=== PATIENT | female | born 1975 | race Caucasian/White ===

== ENCOUNTER 2016-04-24 14:05 | Emergency (ER) | payer MEDICAID ==
[~2016-04-24] VITALS: Ht 160 cm; Wt 55.0 kg
[~2016-04-24 14:05] MED LIST: CRUT1EAC7 MC; CYCL10TA45 PO; ESTR2TAB PO; HYDR-3702 PO; LISD30CA2 PO; ONDA4TAB8 PO; OXYC1TAB6 PO; PROM25SU10 PR; TRIA5PAS3 BU; TRM50T PO
[2016-04-24] MEDS ORDERED: SUVO10TA PO (14:21)
[2016-04-24] MEDS ORDERED: NALBUPHINE 10 MG/ML (NUBAIN) 1 ML AMP IM ONE (14:45)
[2016-04-24] MEDS: METOCLOPRAMIDE 10 MG/2 ML (REGLAN) VIAL IM ONE ×2 (14:48→14:51)
[2016-04-24] MEDS ORDERED: PROMETHAZINE 25 MG/ML (PHENERGAN) 1 ML VIAL IM ONE (15:00)
[2016-04-24] MEDS ORDERED: PRM12.5SU PR (15:06)
[2016-04-24] MEDS ORDERED: HYDR-3702 PO (15:06)
[2016-04-24 15:17] VITALS: BP 131/82
[2016-05-10] MEDS ORDERED: CYCL10TA45 PO (19:10)
[2016-05-10] MEDS ORDERED: OXAP600T2 PO (19:10)
== END 2016-04-24 15:18 | disposition home or self-care (01) ==
LOC: ED 14:06
DX: G43.909 Migraine, unspecified, not intractable, without status migrainosus (principal)
CPT/HCPCS: 96372; 99282; J2300; J2550; 99283

== ENCOUNTER 2016-04-28 21:56 | Emergency (ER) | payer MEDICAID ==
[~2016-04-28] VITALS: Ht 160 cm; Wt 56.4 kg
[~2016-04-28 21:56] MED LIST changes: +PRM12.5SU PR; +SUVO10TA PO
[2016-04-28] MEDS ORDERED: ALPR.5T PO (22:02)
[2016-04-28] MEDS ORDERED: LISD40CA PO (22:02)
[2016-04-28] MEDS ORDERED: NALBUPHINE 10 MG/ML (NUBAIN) 1 ML AMP IM ONE (22:25)
[2016-04-28] MEDS ORDERED: PROMETHAZINE 25 MG/ML (PHENERGAN) 1 ML VIAL IM ONE (22:25)
[2016-04-28] MEDS ORDERED: HYDROmorphone 2 MG/ML (DILAUDID) 1 ML SYRINGE IM ONE (22:40)
--- NOTE | 2016-04-28 22:41 | NUR ---
Patient refused nubane, Dropped the syringe with promethazine. Both meds wasted, Frances Garcia RN witnessed me wasting med.
[2016-04-28] MEDS ORDERED: ORPHENADRINE 60 MG/2 ML (NORFLEX) AMP IM ONE (23:30)
[2016-04-29 00:02] VITALS: BP 129/88
[2016-05-10] MEDS ORDERED: CYCL10TA45 PO (19:10)
[2016-05-10] MEDS ORDERED: OXAP600T2 PO (19:10)
== END 2016-04-29 00:03 | disposition home or self-care (01) ==
LOC: ED 21:58
DX: M54.5 Low back pain (principal)
CPT/HCPCS: 96372; 99282; J1170; J2360; J2550

== ENCOUNTER 2016-05-10 17:16 | Emergency (ER) | payer MEDICAID ==
[~2016-05-10] VITALS: Ht 160 cm; Wt 53.0 kg
[2016-05-10] MEDS ORDERED: KETOROLAC 60 MG/2 ML (TORADOL) VIAL IM ONE (17:45)
[2016-05-10 18:38] LABS: BILIRUBIN,URINE Negative (Negative); CLARITY,URINE Clear; COLOR,URINE Yellow; GLUCOSE, URINE (UA) Negative (Negative); LEUKOCYTE ESTERASE ,URINE Negative (Negative); UROBILINOGEN,URINE 0.2 mg/dL (0.2-1.0)
[2016-05-10 18:47] LABS: URINE CENTRIFUGED VOLUME 12 mL
[2016-05-10 18:48] LABS: RBC,URINE 0-2 /HPF
--- NOTE | 2016-05-10 19:30 | NUR ---
Went to d/c pt and pt states that she thought she was going to get another shot or something for pain before leaving, RN did explain to pt that she has RX's waiting at [facility] for her but that I would ask Dr. Mcgee, pt states that she did not have any pain relief with what she was given before.
--- NOTE | 2016-05-10 19:32 | NUR ---
Spoke with Dr. Mcgee and he ordered pt a prepack of Flexeril
[2016-05-10] MEDS ORDERED: ED- CYCLOBENZAPRINE 10 MG (FLEXERIL) 3 TABLETS/BTL PO ONE (19:35)
--- NOTE | 2016-05-10 19:40 | NUR ---
Gave pt her d/c instructions and her prepack, pt states that she thought she was getting something here for pain, then states "it's ok I'm over it" RN apologized for any confusion pt states that the Flexeril gives her migraines, and she usallly takes some skelaxin, but it's not working for her. Pt then left the ED
[2016-05-10 19:47] VITALS: BP 137/107
== END 2016-05-10 19:40 | disposition home or self-care (01) ==
LOC: ED 17:16
DX: M54.5 Low back pain (principal)
CPT/HCPCS: 72100; 81003; 81015; 96372; 99282; A9270; J1885; 99283

== ENCOUNTER 2016-05-11 17:52 | Emergency (ER) | payer MEDICAID ==
[~2016-05-11] VITALS: Ht 160 cm; Wt 53.6 kg
[~2016-05-11 17:52] MED LIST changes: +ALPR.5T PO; +LISD40CA PO; +OXAP600T2 PO
[2016-05-11] MEDS ORDERED: diphenhydrAMINE 50 MG/ML INJ (BENADRYL) IM ONE (18:20)
[2016-05-11] MEDS ORDERED: HALOPERIDOL 5 MG/ML (HALDOL) 1 ML AMP IM ONE (18:20)
[2016-05-11] MEDS ORDERED: LORazepam 2 MG/ML (ATIVAN) 1 ML VIAL IM ONE (18:20)
[2016-05-11 18:52] VITALS: BP 144/79
== END 2016-05-11 18:53 | disposition home or self-care (01) ==
LOC: ED 17:53
DX: R51 Headache (principal)
CPT/HCPCS: 96372; 99282; J1200; J1630; J2060

== ENCOUNTER → 2016-07-01 | Outpatient (REF) | payer MEDICAID ==
[2016-07-01 15:24] LABS: BASOPHILS % (AUTO) 1 % (0-2); EOSINOPHILS # (AUTO) 0.1 10^3uL; EOSINOPHILS % (AUTO) 2 % (0-4); LYMPHOCYTES # (AUTO) 2.5 X10^3; MEAN CORPUSCULAR HGB CONC 34.9 g/dL (31.0-37.0); MEAN CORPUSCULAR VOLUME 90 FL (80-100); MEAN PLATELET VOLUME 10.8 FL (6.0-9.5); MONOCYTES # (AUTO) 0.4 X10^3; MONOCYTES % (AUTO) 8 % (3-11); NEUTROPHILS # (AUTO) 2.4 X10^3; NEUTROPHILS % (AUTO) 44 % (51-67); PLATELET COUNT 290 10^3uL (150-450); WHITE BLOOD COUNT 5.35 10^3uL (4.0-11.0)
[2016-07-01 15:36] LABS: MEAN CORPUSCULAR HEMOGLOBIN 31.4 PG (26.0-34.0)
[2016-07-01 15:51] LABS: BILIRUBIN,URINE Negative (Negative); CLARITY,URINE Clear; COLOR,URINE Yellow; GLUCOSE, URINE (UA) Negative (Negative); LEUKOCYTE ESTERASE ,URINE Negative (Negative); UROBILINOGEN,URINE 0.2 mg/dL (0.2-1.0)
[2016-07-01 15:59] LABS: ALBUMIN 4.9 g/dL (3.4-5.0); ANION GAP 13.9 MEQ/L (3-15); CALCULATED IONIZED CALCIUM 3.8 mg/dL (3.8-4.6); TOTAL PROTEIN 8.4 g/dL (6.4-8.5)
[2016-07-01 17:02] LABS: ERYTHROCYTE SEDIMENTATION RT* 13 mm/hr (0-21)
[2016-07-03 19:32] LABS: EBV NUCLEAR IGG INDEX 7.88 OD Ratio (<0.91)
== END ==
LOC: LAB 14:50
PROVIDERS: ATTEND Family Medicine
DX: R53.83 Other fatigue (principal); R59.0 Localized enlarged lymph nodes
CPT/HCPCS: 80053; 81003; 85025; 85652; 86140; 86663; 86664; 86665

== ENCOUNTER → 2016-07-29 | Outpatient (CLI) | payer MEDICAID ==
--- NOTE | 2016-07-29 13:47 | Diagnostic Imaging Report ---
INDICATION: Lump in right groin. FINDINGS: Real-time imaging shows several lymph nodes in the right inguinal region. Largest measures 1.6 x 1.2 cm. This shows normal fatty hilum with normal blood flow. There are a few additional smaller lymph nodes also normal in appearance. Left groin was scanned for comparison showing similar lymph nodes, largest measuring 1.4 cm. Comparison with previous CT scan of the pelvis on 12/21/2015, demonstrates very similar-appearing lymph nodes at that time. IMPRESSION: Bilateral inguinal lymph nodes with benign appearance. These do appear to be stable when compared with previous examination in 2016. Dictated by: Dictated on workstation # [id number]
== END ==
LOC: RAD 12:43
PROVIDERS: ATTEND Family Medicine
DX: R59.0 Localized enlarged lymph nodes (principal)
CPT/HCPCS: 76881

== ENCOUNTER 2016-08-31 15:05 | Emergency (ER) | payer MEDICAID ==
[~2016-08-31] VITALS: Ht 160 cm; Wt 49.0 kg
--- OUTSIDE RECORDS SUMMARY | 2016-08-31 15:11 | XMS REPORT | Continuity of Care Document ---
Author Author Meghan Wilson Meghan Address Unknown Phone Unavailable Care Team Providers Care Expeditionary Fighting Vehicle Crewman Name Role Phone [employer] Unavailable Unavailable Problems Problem Status Onset Date Classification Date Reported Comments Source No data available for this section Problem 12/17/2015 [facility]. Medications Medication Details Route Status Patient Instructions Ordering Provider Order Date Source No Known Medications No known medications Active [employer]. Allergies, Adverse Reactions, Alerts Substance Category Reaction Severity Reaction type Status Date Reported Comments Source Morphine Assertion Drug allergy Pt states "It made me throw up once". [facility]. Metoclopramide Assertion Drug allergy [facility]. sulfa drugs Assertion Drug allergy [facility]. Immunizations Immunization Date Given Site Status Last Updated Comments Source No data available for this section No data available for this section [employer] [facility]. Results Vital Signs Encounters Location Location Details Encounter Type Encounter Number Reason For Visit Attending Provider ADM Date DC Date Status Source [facility] [id number] Emergency [id number] Faith Goss 12/12/2015 12/12/2015 Active [facility]. Procedures Procedure Code Date Perfomer Comments Source No data available for this section [facility]. Plan of Care Social History Assessment and Plan Family History Value Date Source Advance Directives Order Name Results Value Date Source
--- OUTSIDE RECORDS SUMMARY | 2016-08-31 15:12 | XMS REPORT | Continuity of Care Document ---
Author Author Meghan Wilson Meghan Address Unknown Phone Unavailable Care Team Providers Care Talent Buyer Name Role Phone [employer] Unavailable Unavailable Problems Problem Status Onset Date Classification Date Reported Comments Source No data available for this section Problem 12/17/2015 [facility]. Medications Medication Details Route Status Patient Instructions Ordering Provider Order Date Source No Known Medications No known medications Active [employer]. Allergies, Adverse Reactions, Alerts Substance Category Reaction Severity Reaction type Status Date Reported Comments Source Morphine Assertion Drug allergy Pt states "It made me throw up once". [facility]. sulfa drugs Assertion Drug [facility]. Immunizations Immunization Date Given Site Status Last Updated Comments Source No data available for this section No data available for this section [employer]. Results Vital Signs Encounters Location Location Details Encounter Type Encounter Number Reason For Visit Attending Provider ADM Date DC Date Status Source [facility] [id number] Emergency [id number] Faith Goss 12/12/2015 12/12/2015 Active [employer]. Procedures Procedure Code Date Perfomer Comments Source No data available for this section [employer]. Plan of Care Social History Assessment and Plan Family History Value Date Source Advance Directives Order Name Results Value Date Source
[2016-08-31] MEDS ORDERED: HYDROmorphone 1 MG/ML (DILAUDID) SYRINGE IM ONE (15:35)
[2016-08-31] MEDS ORDERED: KETOROLAC 60 MG/2 ML (TORADOL) VIAL IM ONE (15:35)
[2016-08-31] MEDS ORDERED: PROMETHAZINE 25 MG/ML (PHENERGAN) 1 ML VIAL IM ONE (15:35)
--- NOTE | 2016-08-31 16:21 | Diagnostic Imaging Report ---
INDICATION: Trauma with right ankle pain. AP, oblique, and lateral views the right ankle are obtained. FINDINGS: No fracture or acute bony abnormality is seen. The joint spaces are unremarkable. IMPRESSION: Negative right ankle. Dictated by: Dictated on workstation # [id number]
[2016-08-31 16:54] VITALS: BP 155/77
== END 2016-08-31 16:45 | disposition home or self-care (01) ==
LOC: ED 15:06
DX: S93.401A Sprain of unspecified ligament of right ankle, initial encounter (principal); W01.198A Fall on same level from slipping, tripping and stumbling with subsequent striking against other object, initial encounter; Y93.89 Activity, other specified; Y92.410 Unspecified street and highway as the place of occurrence of the external cause; F17.210 Nicotine dependence, cigarettes, uncomplicated
CPT/HCPCS: 73610; 96372; 99282; J1170; J1885; J2550; 29515; 99283

== ENCOUNTER 2016-09-05 07:45 | Emergency (ER) | payer MEDICAID ==
[~2016-09-05] VITALS: Ht 160 cm; Wt 55.0 kg
--- OUTSIDE RECORDS SUMMARY | 2016-09-05 07:50 | XMS REPORT | Continuity of Care Document ---
Author Author Meghan Wilson Meghan Address Unknown Phone Unavailable Care Team Providers Care Safe Expert Name Role Phone [employer] Unavailable Unavailable Problems Problem Status Onset Date Classification Date Reported Comments Source No data available for this section Problem 12/17/2015 [facility]. Medications Medication Details Route Status Patient Instructions Ordering Provider Order Date Source No Known Medications No known medications Active [employer]. Allergies, Adverse Reactions, Alerts Substance Category Reaction Severity Reaction type Status Date Reported Comments Source Morphine Assertion Drug allergy Pt states "It made me throw up once". [facility] Metoclopramide Assertion Drug [facility] sulfa drugs Assertion Drug [facility] Immunizations Immunization Date Given Site Status Last Updated Comments Source No data available for this section No data available for this section [employer]. Results Vital Signs Encounters Location Location Details Encounter Type Encounter Number Reason For Visit Attending Provider ADM Date DC Date Status Source [facility] [id number] Emergency [id number] Faith Goss 12/12/2015 12/12/2015 Active [employer]. Procedures Procedure Code Date Perfomer Comments Source No data available for this section [employer]. Plan of Care Social History Assessment and Plan Family History Value Date Source Advance Directives Order Name Results Value Date Source
--- OUTSIDE RECORDS SUMMARY | 2016-09-05 07:51 | XMS REPORT | Continuity of Care Document ---
Author Author Meghan Wilson Meghan Address Unknown Phone Unavailable Care Team Providers Care Travel Professional Name Role Phone [employer] Unavailable Unavailable Problems Problem Status Onset Date Classification Date Reported Comments Source No data available for this section Problem 12/17/2015 [facility] [employer]. Medications Medication Details Route Status Patient Instructions Ordering Provider Order Date Source No Known Medications No known medications Active [employer]. Allergies, Adverse Reactions, Alerts Substance Category Reaction Severity Reaction type Status Date Reported Comments Source Morphine Assertion Drug allergy Pt states "It made me throw up once". [facility] Metoclopramide Assertion Drug allergy [facility]. sulfa drugs Assertion Drug allergy [facility]. Immunizations Immunization Date Given Site Status Last Updated Comments Source No data available for this section No data available for this section [employer]. Results Vital Signs Encounters Location Location Details Encounter Type Encounter Number Reason For Visit Attending Provider ADM Date DC Date Status Source [facility] [id number] Emergency [id number] Faith Goss 12/12/2015 12/12/2015 Active [employer]. Procedures Procedure Code Date Perfomer Comments Source No data available for this section [employer]. Plan of Care Social History Assessment and Plan Family History Value Date Source Advance Directives Order Name Results Value Date Source
[2016-09-05] MEDS: KETOROLAC 30 MG/ML (TORADOL) 1 ML VIAL IV ONE (08:14)
[2016-09-05] MEDS: LORazepam 2 MG/ML (ATIVAN) 1 ML VIAL IV ONE (08:14)
[2016-09-05] MEDS: ONDANSETRON 2 MG/ML (Z0FRAN) 2 ML VIAL IV ONE (08:14)
[2016-09-05] MEDS: SODIUM CHLORIDE FLUSH 3 ML SYR IV ONE (08:14)
[2016-09-05 08:27] LABS: BILIRUBIN,URINE Negative (Negative); CLARITY,URINE Clear; COLOR,URINE Yellow; GLUCOSE, URINE (UA) Negative (Negative); LEUKOCYTE ESTERASE ,URINE Negative (Negative); PH,URINE 5.5 (5.0 - 8.0); UROBILINOGEN,URINE 0.2 mg/dL (0.2-1.0)
[2016-09-05] MEDS ORDERED: OXYC1TAB8 PO (08:31)
[2016-09-05 08:34] LABS: BASOPHILS % (AUTO) 0 % (0-2); EOSINOPHILS # (AUTO) 0.1 10^3uL; EOSINOPHILS % (AUTO) 2 % (0-4); LYMPHOCYTES # (AUTO) 2.1 X10^3; MEAN CORPUSCULAR HEMOGLOBIN 30.9 PG (26.0-34.0); MEAN CORPUSCULAR HGB CONC 34.3 g/dL (31.0-37.0); MEAN CORPUSCULAR VOLUME 90 FL (80-100); MEAN PLATELET VOLUME 10.2 FL (6.0-9.5); MONOCYTES # (AUTO) 0.4 X10^3; MONOCYTES % (AUTO) 9 % (3-11); NEUTROPHILS % (AUTO) 44 % (51-67); PLATELET COUNT 217 10^3uL (150-450); WHITE BLOOD COUNT 4.68 10^3uL (4.0-11.0)
[2016-09-05 08:41] LABS: RBC,URINE 0-2 /HPF; URINE CENTRIFUGED VOLUME 12 mL
[2016-09-05 08:46] LABS: ALBUMIN 3.9 g/dL (3.4-5.0); ALKALINE PHOSPHATASE 53 U/L (38-126); AMYLASE* 60 U/L (25-115); ANION GAP 9.4 MEQ/L (3-15); BUN/CREATININE RATIO 18 (10-20); LIPASE* 70 U/L (23-300); TOTAL PROTEIN 7.1 g/dL (6.4-8.5)
--- NOTE | 2016-09-05 09:24 | Diagnostic Imaging Report ---
PROCEDURE: CT head without contrast. TECHNIQUE: Multiple contiguous axial images were obtained through the brain without the use of intravenous contrast. DATE: September 05, 2016. COMPARISON: CT head February 03, 2013. INDICATION: 40-year-old female, left upper extremity paresthesia. FINDINGS: The ventricles and cerebral spinal fluid spaces are of normal size and configuration for the patient's age. There is no mass effect or midline shift. There is no acute intracranial hemorrhage. There is no abnormal extra-axial fluid collection. The visualized portions of the paranasal sinuses, mastoid air cells, and middle ears are well aerated. There is deviation of the bony nasal septum off midline. IMPRESSION: No identified acute intracranial abnormality. Dictated by: Dictated on workstation # [id number]
--- NOTE | 2016-09-05 09:31 | Diagnostic Imaging Report ---
PROCEDURE: CT abdomen and pelvis without contrast. TECHNIQUE: Multiple contiguous axial images were obtained through the abdomen and pelvis without the use of intravenous contrast. INDICATION: Abdominal pain. CORRELATION STUDY: 12/21/2015. FINDINGS: Lung bases clear. Partial visualization of right breast implant. Overall assessment of the abdominal and pelvic structures limited given the lack of contrast and generalized paucity of mesenteric fat. The unenhanced liver, spleen appearing unremarkable. Gallbladder absent with clips in the fossa. Mild prominent appearance about the biliary tree. The common bile duct dilatation is slightly more pronounced from prior study currently 13 mm, previously 10 mm. Pancreas and adrenal glands are not well defined but grossly unremarkable. Kidneys have a generally normal configuration and appearance without obstructive uropathy. Abdominal aorta grossly normal in contour. There is distended expected location of the left renal vein extending into the IVC, stable in its configuration. Gastrointestinal tract demonstrates mild/moderate severity fecal retention. No definitive evidence for obstruction. Inflammation would be difficult to exclude. Appendix not identified. Clips near the cecum may be reflective of prior appendectomy. No abdominal ascites or free air. Urinary bladder unremarkable. Osseous structures demonstrate no acute findings. 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 IMPRESSION: 1. Postcholecystectomy changes, however, the common bile duct is mildly dilated and appears slightly more pronounced from prior study. Correlation with laboratory values. There is presence of mild/moderate severity intrahepatic bile duct dilatation as well. 2. Otherwise, negative for acute abnormality about the abdomen and/or pelvis on limited noncontrast imaging. If further assessment is desired, post contrast imaging would be recommended. Dictated by: Dictated on workstation # [id number]
[2016-09-05] MEDS: SODIUM CHLORIDE FLUSH 10 ML SYR IV PRN (09:51)
[2016-09-05] MEDS: HYDROmorphone 1 MG/ML (DILAUDID) SYRINGE IV ONE (09:51)
[2016-09-05] MEDS: PROMETHAZINE HCL INJ 12.5 MG in SODIUM CHLORIDE 25 ML IV ONE (09:56)
--- NOTE | 2016-09-05 10:35 | NUR ---
pt getting dressed
[2016-09-05 10:46] VITALS: BP 134/93
[2016-09-05] MEDS ORDERED: HYDROmorphone 1 MG/ML (DILAUDID) SYRINGE IV ONE (11:05)
[2016-09-05] MEDS: HYDROmorphone 1 MG/ML (DILAUDID) SYRINGE IM ONE (11:11)
== END 2016-09-05 11:15 | disposition home or self-care (01) ==
LOC: ED 07:46
DX: K91.5 Postcholecystectomy syndrome (principal); R10.12 Left upper quadrant pain; R11.2 Nausea with vomiting, unspecified
CPT/HCPCS: 36415; 70450; 74176; 80053; 81003; 81015; 82150; 83690; 85025; 86140; 96361; 96365; 96375; 96376; 99284; J1170; J1885; J2060; J2405; J2550; J7030; 99283

== ENCOUNTER → 2016-09-07 | Outpatient (CLI) | payer MEDICAID ==
[~2016-09-07] VITALS: Ht 160 cm; Wt 47.2 kg
[~2016-09-07] MED LIST changes: +HYDROmorphone 1 MG/ML (DILAUDID) SYRINGE IV SCH; +HYDROmorphone 2 MG/ML (DILAUDID) 1 ML SYRINGE IV ONE; +ONDANSETRON 2 MG/ML (Z0FRAN) 2 ML VIAL IV SCH; +OXYC1TAB8 PO; +SODIUM CHLORIDE FLUSH 3 ML SYR IV SCH
[2016-09-07 17:35] VITALS: BP 123/87
--- NOTE | 2016-09-07 18:01 | NUR ---
PHONE CALL TO PCP WITH PT REQUEST FOR MORE PAIN MEDICATION D/T CONTINUED ABDOMINAL PAIN. DR LEWIS ORDERS DILAUDID 1MG IV X1 TO BE GIVEN NOW.
--- NOTE | 2016-09-07 18:27 | NUR ---
PT HAS BOTH DOORS TO TREATMENT ROOM LOCKED WITH ANOTHER FEMALE IN WITH HER. PT STATES "I DIDN'T KNOW IT WAS LOCKED". CL
--- NOTE | 2016-09-07 18:28 | NUR ---
PT FOUND TO BE EATING HAMBURGER & ICE CREAM WITH SODA FROM DAIRY WILKS THAT ANOTHER YOUNG FEMALE HAS BROUGHT IN TO HER. CL
== END ==
LOC: EUOP 17:11
PROVIDERS: ATTEND Family Medicine
DX: E86.0 Dehydration (principal)
CPT/HCPCS: 36000; 96361; 96374; 96376; J1170; J7030

== ENCOUNTER 2016-09-09 05:15 | Emergency (ER) | payer MEDICAID ==
[~2016-09-09] VITALS: Ht 165.1 cm; Wt 50.4 kg
[~2016-09-09 05:15] MED LIST changes: -HYDROmorphone 1 MG/ML (DILAUDID) SYRINGE IV SCH; -HYDROmorphone 2 MG/ML (DILAUDID) 1 ML SYRINGE IV ONE; -ONDANSETRON 2 MG/ML (Z0FRAN) 2 ML VIAL IV SCH; -SODIUM CHLORIDE FLUSH 3 ML SYR IV SCH
--- OUTSIDE RECORDS SUMMARY | 2016-09-09 05:20 | XMS REPORT | Continuity of Care Document ---
Author Author Meghan Wilson Meghan Address Unknown Phone Unavailable Care Team Providers Care Professional Development Manager Name Role Phone [employer] Unavailable Unavailable Problems Problem Status Onset Date Classification Date Reported Comments Source No data available for this section Problem 12/17/2015 [facility]. Medications Medication Details Route Status Patient Instructions Ordering Provider Order Date Source No Known Medications No known medications Active [employer]. Allergies, Adverse Reactions, Alerts Substance Category Reaction Severity Reaction type Status Date Reported Comments Source Morphine Assertion Drug allergy Pt states "It made me throw up once". [facility]. Metoclopramide Assertion Drug allergy [facility]. sulfa drugs Assertion Drug allergy [facility]. Immunizations Immunization Date Given Site Status Last Updated Comments Source No data available for this section No data available for this section [facility] [employer]. Results Vital Signs Encounters Location Location Details Encounter Type Encounter Number Reason For Visit Attending Provider ADM Date DC Date Status Source [facility] [id number] Emergency [id number] Faith Goss 12/12/2015 12/12/2015 Active [facility]. Procedures Procedure Code Date Perfomer Comments Source No data available for this section [facility] [employer]. Plan of Care Social History Assessment and Plan Family History Value Date Source Advance Directives Order Name Results Value Date Source
--- OUTSIDE RECORDS SUMMARY | 2016-09-09 05:21 | XMS REPORT | Continuity of Care Document ---
Author Author Meghan Wilson Meghan Address Unknown Phone Unavailable Care Team Providers Care Skin Care Consultant Name Role Phone [employer] Unavailable Unavailable Problems Problem Status Onset Date Classification Date Reported Comments Source No data available for this section Problem 12/17/2015 [facility] [employer]. Medications Medication Details Route Status Patient Instructions Ordering Provider Order Date Source No Known Medications No known medications Active [employer]. Allergies, Adverse Reactions, Alerts Substance Category Reaction Severity Reaction type Status Date Reported Comments Source Morphine Assertion Drug allergy Pt states "It made me throw up once". [facility]. Metoclopramide Assertion Drug [facility]. sulfa drugs Assertion Drug [facility]. Immunizations Immunization Date Given Site Status Last Updated Comments Source No data available for this section No data available for this section [employer]. Results Vital Signs Encounters Location Location Details Encounter Type Encounter Number Reason For Visit Attending Provider ADM Date DC Date Status Source [facility] [id number] Emergency [id number] Faith Goss 12/12/2015 12/12/2015 Active [employer]. Procedures Procedure Code Date Perfomer Comments Source No data available for this section [employer]. Plan of Care Social History Assessment and Plan Family History Value Date Source Advance Directives Order Name Results Value Date Source
--- NOTE | 2016-09-09 05:31 | NUR ---
TRIAGE REPORT GIVEN TO YARELIS VENCES
[2016-09-09] MEDS ORDERED: SODIUM CHLORIDE FLUSH 3 ML SYR IV ONE (05:40)
[2016-09-09] MEDS ORDERED: KETOROLAC 30 MG/ML (TORADOL) 1 ML VIAL IV ONE (05:40)
[2016-09-09] MEDS ORDERED: HYDROmorphone 1 MG/ML (DILAUDID) SYRINGE IV ONE ×2 (05:40→07:10)
[2016-09-09] MEDS ORDERED: SODIUM CHLORIDE FLUSH 10 ML SYR IV PRN (05:40)
[2016-09-09] MEDS ORDERED: ONDANSETRON 2 MG/ML (Z0FRAN) 2 ML VIAL IV ONE (05:40)
[2016-09-09 06:10] LABS: BASOPHILS % (AUTO) 1 % (0-2); EOSINOPHILS # (AUTO) 0.1 10^3uL; EOSINOPHILS % (AUTO) 2 % (0-4); LYMPHOCYTES # (AUTO) 2.4 X10^3; MEAN CORPUSCULAR HGB CONC 34.3 g/dL (31.0-37.0); MEAN CORPUSCULAR VOLUME 90 FL (80-100); MEAN PLATELET VOLUME 10.5 FL (6.0-9.5); MONOCYTES # (AUTO) 0.4 X10^3; MONOCYTES % (AUTO) 7 % (3-11); NEUTROPHILS # (AUTO) 2.8 X10^3; NEUTROPHILS % (AUTO) 48 % (51-67); PLATELET COUNT 273 10^3uL (150-450); WHITE BLOOD COUNT 5.67 10^3uL (4.0-11.0)
[2016-09-09 06:42] LABS: ALBUMIN 4.3 g/dL (3.4-5.0); ALKALINE PHOSPHATASE 77 U/L (38-126); AMYLASE* 68 U/L (25-115); ANION GAP 13.3 MEQ/L (3-15); BUN/CREATININE RATIO 16 (10-20); LIPASE* 81 U/L (23-300); TOTAL PROTEIN 7.8 g/dL (6.4-8.5)
[2016-09-09 06:50] LABS: BILIRUBIN,URINE Negative (Negative); CLARITY,URINE Clear; COLOR,URINE Yellow; GLUCOSE, URINE (UA) Negative (Negative); LEUKOCYTE ESTERASE ,URINE Negative (Negative); PH,URINE 6.5 (5.0 - 8.0); UROBILINOGEN,URINE 0.2 mg/dL (0.2-1.0)
[2016-09-09 07:03] LABS: AMPHETAMINE SCREEN, URINE Positive (Negative); CANNABINOID SCREEN, URINE Positive (Negative); METHAMPHETAMINE SCREEN URINE S NEGATIVE (NEGATIVE); OPIATE SCREEN URINE Negative (Negative); PROPOXYPHENE STAT NEGATIVE (NEGATIVE)
[2016-09-09 07:23] VITALS: BP 150/104
== END 2016-09-09 07:23 | disposition home or self-care (01) ==
LOC: ED 05:16
DX: R10.12 Left upper quadrant pain (principal); K92.1 Melena; R11.2 Nausea with vomiting, unspecified; K50.90 Crohn's disease, unspecified, without complications; Z87.898 Personal history of other specified conditions
CPT/HCPCS: 36415; 80053; 80307; 81003; 82150; 83690; 85025; 86140; 96361; 96374; 96375; 96376; 99283; J1170; J1885; J2405; J7030; 99282